=== PATIENT | female | born 1980 | race African-American/Black ===

== ENCOUNTER 2018-04-29 14:22 | Emergency (ER) | payer MEDICAID ==
[2018-04-29] MEDS ORDERED: NS 0.9% 1000 ML* 1,000 ML IV ONE (16:10)
[2018-04-29] MEDS ORDERED: Ondansetron INJ* 2 MG/ML VIAL IV ONE (16:12)
[2018-04-29 16:53] LABS: ABS Basophils 0.1 10^3/ul (0-0.2); ABS Eosinophils 0.4 10^3/ul (0-0.6); ABS Lymphocytes 3.5 10^3/ul (1.0-4.8); ABS Monocytes 0.5 10^3/ul (0-0.8); ABS Neutrophils 3.9 10^3/ul (1.5-7.7); ABS Nucleated RBC 0 10^3/ul; Eosinophil % 4.9 %; Hematocrit 37 % (35-47); Hemoglobin 12.2 g/dl (12.0-16.0); Lymphocyte % 41.8 %; Mean Corpuscular HGB Conc 33 g/dl (31-36); Mean Corpuscular Hemoglobin 28 pg (27-31); Mean Corpuscular Volume 85 fL (80-97); Mean Platelet Volume 9.2 fL (7.4-10.4); Nucleated Red Blood Cells % 0.1; Platelet Count 260 10^3/ul (150-450); Red Blood Count 4.31 10^6/ul (4.00-5.40); Red Cell Distribution Width 15 % (10.5-15); White Blood Count 8.4 10^3/ul (3.5-10.8)
--- NOTE | 2018-04-29 16:57 | ED ---
Back Pain - HPI Summary HPI Summary: Patient presents with central lower back pain and left flank pain associated with fever, nausea and abdominal bloating with left-sided abdominal discomfort. She reports urinary frequency however attributed this to being in cold weather she is from [place]. Denies dysuria, urgency, hematuria. She does report a history of chronic back pain but this feels different. She also admits she just started a new job yesterday with lifting/bending but symptoms started prior to that. She has "not been seen by anyone in a while" for her medical issues as she has not had insurance. Has not tried anything for pain prior to arrival. Reports at 7 out of 10 currently. Has had some spotting recently but denies full-blown period. Also admits to tubal ligation but is still sexually active. - History of Current Complaint Chief Complaint: EDBackInjuryPain Stated Complaint: LOWER BACK PAIN Time Seen by Provider: 04/29/18 14:56 Hx Obtained From: Patient Pain Intensity: 8 - Allergies/Home Medications Allergies/Adverse Reactions: Allergies Allergy/AdvReac Type Severity Reaction Status Date / Time Penicillins Allergy Unknown Verified 04/29/18 14:30 Reaction Details PMH/Surg Hx/FS Hx/Imm Hx Previously Healthy: Yes Endocrine/Hematology History: Denies: Hx Anticoagulant Therapy, Hx Blood Disorders, Autoimmune Disease - Surgical History Surgery Procedure, Year, and Place: tubal ligation Infectious Disease History: No Infectious Disease History: Denies: Traveled Outside the [place] in Last 30 Days - Social History Occupation: Employed Full-time Alcohol Use: Occasionally Hx Substance Use: No Substance Use Type: Reports: None Hx Tobacco Use: Yes Smoking Status (MU): Smoker, Current Status Unknown Review of Systems Positive: Fever, Fatigue Eyes: Negative ENT: Negative Cardiovascular: Negative Respiratory: Negative Positive: Abdominal Pain, Nausea. Negative: Vomiting, Diarrhea Positive: see HPI Positive: Arthralgia Skin: Negative Neurological: Negative Psychological: Normal All Other Systems Reviewed And Are Negative: Yes Physical Exam Triage Information Reviewed: Yes Vital Signs On Initial Exam: Initial Vitals Temp Pulse Resp BP Pulse Ox 97.8 F 71 20 146/96 98 04/29/18 14:24 04/29/18 14:24 04/29/18 14:24 04/29/18 14:24 04/29/18 14:24 Vital Signs Reviewed: Yes Appearance: Positive: Well-Appearing, Pain Distress - appears mildly fatigued Skin: Positive: Warm, Skin Color Reflects Adequate Perfusion, Dry Head/Face: Positive: Normal Head/Face Inspection Eyes: Positive: Normal, EOMI, Conjunctiva Clear - anicteric sclera ENT: Positive: Normal ENT inspection, Hearing grossly normal, Pharynx normal - mucosa moist Neck: Positive: Supple, Nontender, No Lymphadenopathy Respiratory/Lung Sounds: Positive: Breath Sounds Present. Negative: Rales, Rhonchi, Wheezes Cardiovascular: Positive: Normal, RRR, S1, S2. Negative: Murmur, Rub Abdomen Description: Positive: Soft, CVA Tenderness (L), Other: - Lt side ab TTP - no rebounding. Negative: Distended Bowel Sounds: Positive: Present Musculoskeletal: Positive: Strength/ROM Intact, Pain @ - central lower lumbosacral region TTP Neurological: Positive: Normal, Sensory/Motor Intact, Alert, Oriented to Person Place, Time, CN Intact II-III Psychiatric: Positive: Normal Diagnostics - Vital Signs Vital Signs Temp Pulse Resp BP Pulse Ox 04/29/18 14:24 97.8 F 71 20 146/96 98 - Laboratory Lab Results: Lab Results 04/29/18 Range/Units 16:44 WBC 8.4 (3.5-10.8) 10^3/ul RBC 4.31 (4.00-5.40) 10^6/ul Hgb 12.2 (12.0-16.0) g/dl Hct 37 (35-47) % MCV 85 (80-97) fL MCH 28 (27-31) pg MCHC 33 (31-36) g/dl RDW 15 (10.5-15) % Plt Count 260 (150-450) 10^3/ul MPV 9.2 (7.4-10.4) fL Neut % (Auto) 46.2 % Lymph % (Auto) 41.8 % Gilchrist % (Auto) 6.2 % Eos % (Auto) 4.9 % Baso % (Auto) 0.9 % Absolute Neuts (auto) 3.9 (1.5-7.7) 10^3/ul Absolute Lymphs (auto) 3.5 (1.0-4.8) 10^3/ul Absolute Monos (auto) 0.5 (0-0.8) 10^3/ul Absolute Eos (auto) 0.4 (0-0.6) 10^3/ul Absolute Basos (auto) 0.1 (0-0.2) 10^3/ul Absolute Nucleated RBC 0 10^3/ul Nucleated RBC % 0.1 Result Diagrams: 04/29/18 16:44 04/29/18 16:44 Lab Statement: Any lab studies that have been ordered have been reviewed, and results considered in the medical decision making process. Back Pain Course/Dx - Course Course Of Treatment: Signed out to Luis Caputo PA-C in stable condition pending U/A - Diagnoses Provider Diagnoses: Left flank pain, Left lateral abdominal pain Discharge - Sign-Out/Discharge Documenting (check all that apply): Patient Departure - Discharge Plan Condition: Good Disposition: HOME Prescriptions: Naproxen [Naproxen 500 mg tab] 500 mg PO BID #20 tablet. Sulfamethox/Trimethoprim DS* [Bactrim DS 800/160 TAB*] 1 tab PO BID #28 tab Patient Education Materials: Urinary Tract Infection in Women (ED) Forms: *Work Release Referrals: [facility] [Outside] Additional Instructions: Call the [facility] tomorrow to schedule an appointment Take medication as directed Increase fluids Return to ER if symptoms change or worsen - Billing Disposition and Condition Condition: GOOD Disposition: Home
[2018-04-29 17:02] LABS: Activated Partial Thrombo Time 31.3 seconds (26.0-36.3); INR 0.94 (0.77-1.02)
[2018-04-29 17:11] LABS: ALT 10 U/L (7-52); AST 14 U/L (13-39); Albumin 4.2 g/dL (3.2-5.2); Albumin/Globulin Ratio 1.3 (1-3); Alkaline Phosphatase 75 U/L (34-104); Anion Gap 5 mmol/L (2-11); BUN/Creatinine Ratio 14.7 (8-20); Blood Urea Nitrogen 10 mg/dL (6-24); CO2 Carbon Dioxide 29 mmol/L (22-32); Calcium 9.6 mg/dL (8.6-10.3); Chloride 103 mmol/L (101-111); EGFR African American 119.1 (>60); EGFR Non-African American 98.5 (>60); Globulin 3.3 g/dL (2-4); Glucose 115 mg/dL (70-100); Magnesium 1.8 mg/dL (1.9-2.7); Sodium 137 mmol/L (135-145); Total Protein 7.5 g/dL (6.4-8.9)
[2018-04-29 17:17] LABS: HCG Pregnancy < 0.60 mIU/mL
[2018-04-29] MEDS ORDERED: Ketorolac INJ* 30 MG/ML 1 ML VIAL IV PUSH ONE (18:17)
[2018-04-29 19:38] LABS: Urine Appearance Cloudy; Urine Bacteria 1+ (Absent); Urine Bilirubin Negative (Negative); Urine Blood Negative (Negative); Urine Color Yellow; Urine Glucose Negative (Negative); Urine Ketones Negative (Negative); Urine Nitrite Negative (Negative); Urine Protein Negative (Negative); Urine Red Blood Cell 3+(>10/hpf) (Absent); Urine Specific Gravity 1.018 (1.010-1.030); Urine Squamous Epithelial Cell Present (Absent); Urine Urobilinogen Negative (Negative); Urine White Blood Cell 3+(>20/hpf) (Absent)
--- NOTE | 2018-04-29 20:01 | PN ---
Progress Note - Progress Note Date of Service: 04/29/18 Note: Pt. received in sign out from Silke Peters PA-C pending u/a. U/A does show large RBCs and WBCs. Pt. was re-examined and noted left flank pain. She has no hx of kidney stones. Discussed possibility of urolithiasis based on u/a and flank pain. Pt. is agreeable to noncontrast CT scan for further evaluation. Abd./pelvis CT per virtual radiology is negative for acute findings per radiology. Will treat for suspected UTI given u/a, culture sent. Pt. started on bactrim and naproxen. To call the [facility] tomorrow for a close f.u apt. Will return to ER if sx change or worsen. Pt. understands and agrees with plan. Dx: UTI, back pain Disposition: home Condition: improved
[2018-04-29] MEDS ORDERED: Sulfamethox/Trimethoprim DS 800/160* TAB PO ONE (20:58)
[2018-04-29 21:29] VITALS: BP 120/74
== END 2018-04-29 21:28 | disposition home or self-care (01) ==
LOC: ED 14:22
DX: M54.5 Low back pain (principal); R10.32 Left lower quadrant pain; N39.0 Urinary tract infection, site not specified; Z88.0 Allergy status to penicillin
CPT/HCPCS: 36415; 74176; 80053; 81003; 81015; 83605; 83690; 83735; 84702; 85025; 85610; 85730; 86140; 87086; 96361; 96374; 96375; 99283; A9270-GY; J1885; J2405

== ENCOUNTER 2018-09-18 06:10 | Emergency (ER) | payer SELFPAY ==
--- NOTE | 2018-09-18 06:22 | ED ---
Lower Extremity - History of Current Complaint Chief Complaint: EDExtremityLower Stated Complaint: RT FOOT INJURY PER PT Time Seen by Provider: 09/18/18 06:19 Hx Obtained From: Patient Pain Intensity: 6 - Allergies/Home Medications Allergies/Adverse Reactions: Allergies Allergy/AdvReac Type Severity Reaction Status Date / Time Penicillins Allergy Unknown Verified 09/18/18 06:15 Reaction Details PMH/Surg Hx/FS Hx/Imm Hx Endocrine/Hematology History: Denies: Hx Anticoagulant Therapy, Hx Blood Disorders - Surgical History Surgery Procedure, Year, and Place: tubal ligation Infectious Disease History: No Infectious Disease History: Denies: Traveled Outside the [place] in Last 30 Days - Social History Alcohol Use: Occasionally Hx Substance Use: No Substance Use Type: Reports: None Hx Tobacco Use: Yes Smoking Status (MU): Smoker, Current Status Unknown Physical Exam Vital Signs On Initial Exam: Initial Vitals Temp Pulse Resp BP Pulse Ox 97.9 F 88 16 152/86 99 09/18/18 06:13 09/18/18 06:13 09/18/18 06:13 09/18/18 06:13 09/18/18 06:13 Diagnostics - Vital Signs Vital Signs Temp Pulse Resp BP Pulse Ox 09/18/18 06:13 97.9 F 88 16 152/86 99 - Laboratory Lab Statement: Any lab studies that have been ordered have been reviewed, and results considered in the medical decision making process. Discharge - Discharge Plan Referrals: Raeann Patel DO [Primary Care Provider] -
--- NOTE | 2018-09-18 06:33 | ED ---
Lower Extremity - HPI Summary HPI Summary: Pt is a 38 y/o otherwise healthy female with right midfoot pain, worse with eversion and walking, since 2030 last night. She states she slammed down her heel when she got out of the car and had immediate pain. She has not attempted to relieve her pain with OTC medications or ice. Denies bruising, redness, weakness. Notes intermittent tingling. Denies previous injury or surgeries on right foot. - History of Current Complaint Chief Complaint: EDExtremityLower Stated Complaint: RT FOOT INJURY PER PT Time Seen by Provider: 09/18/18 06:19 Hx Obtained From: Patient Onset of Pain: Hours Onset/Duration: Hours Severity Initially: Mild Severity Currently: Mild Pain Intensity: 4 Timing: Constant Location: Is Discrete @ - Dorsal midfoot, plantar arch. Character Of Pain: Aching Associated Signs And Symptoms: Negative: Swelling, Redness, Bruising, Fever Aggravating Factor(s): Standing, Ambulation Alleviating Factor(s): Nothing Able to Bear Weight: Yes - Allergies/Home Medications Allergies/Adverse Reactions: Allergies Allergy/AdvReac Type Severity Reaction Status Date / Time Penicillins Allergy Unknown Verified 09/18/18 06:15 Reaction Details Home Medications: Home Medications NK [No Home Medications Reported] 09/18/18 [History Confirmed 09/18/18] PMH/Surg Hx/FS Hx/Imm Hx Previously Healthy: Yes Endocrine/Hematology History: Denies: Hx Anticoagulant Therapy, Hx Blood Disorders - Surgical History Surgical History: Yes Surgery Procedure, Year, and Place: tubal ligation Infectious Disease History: No Infectious Disease History: Denies: Traveled Outside the [place] in Last 30 Days - Family History Known Family History: Positive: Non-Contributory - Social History Alcohol Use: Occasionally Hx Substance Use: No Substance Use Type: Reports: None Hx Tobacco Use: Yes Smoking Status (MU): Former Smoker Review of Systems Negative: Fever, Chills Negative: Chest Pain Negative: Shortness Of Breath Positive: Decreased ROM, Other - Right midfoot pain. Negative: Edema Negative: Rash, Bruising All Other Systems Reviewed And Are Negative: Yes Physical Exam Triage Information Reviewed: Yes Vital Signs On Initial Exam: Initial Vitals Temp Pulse Resp BP Pulse Ox 97.9 F 88 16 152/86 99 09/18/18 06:13 09/18/18 06:13 09/18/18 06:13 09/18/18 06:13 09/18/18 06:13 Vital Signs Reviewed: Yes Appearance: Positive: Well-Appearing, No Pain Distress Skin: Positive: Warm, Skin Color Reflects Adequate Perfusion, Dry Head/Face: Positive: Normal Head/Face Inspection Eyes: Positive: Normal ENT: Positive: Normal ENT inspection Respiratory/Lung Sounds: Positive: Clear to Auscultation, Breath Sounds Present. Negative: Rales, Rhonchi, Wheezes Cardiovascular: Positive: RRR. Negative: Murmur, Rub Musculoskeletal: Positive: Strength/ROM Intact - Limited right foot eversion d/ t pain. Pt notes limp with gait d/t pain., Pain @ - Dorsal right mid-foot, plantar arch of right foot., Other - No right foot or right ankle swelling. Sensation intact. Cap refill <2 seconds. Distal pulses 2+ and equal b/l. Neurological: Positive: Normal, Sensory/Motor Intact, Alert, Oriented to Person Place, Time Psychiatric: Positive: Normal Procedures - Splinting Right foot Splint: post-op shoe Pre-Proc Neuro Vasc Exam: normal Post-Proc Neuro Vasc Exam: normal, unchanged from pre-exam Diagnostics - Vital Signs Vital Signs Temp Pulse Resp BP Pulse Ox 09/18/18 06:13 97.9 F 88 16 152/86 99 - Laboratory Lab Statement: Any lab studies that have been ordered have been reviewed, and results considered in the medical decision making process. - Radiology Right foot x-ray Radiology Interpretation Completed By: ED Physician Summary of Radiographic Findings: negative for acute fractures Lower Extremity Course/Dx - Course Course Of Treatment: 38 y/o female with right mid-foot pain after injury. X-ray is negative for acute fractures. Pt provided post-op shoe in the ED, NV intact, and discharged to f/u with PCP. May take Tylenol and ibuprofen for pain control. Assessment/Plan: X-rays negative. No Lisfranc joint tenderness. Postop shoe placed. Patient seen in collaboration with the physician certified physical therapist assistant student. - Diagnoses Differential Diagnosis/HQI/PQRI: Positive: Contusion, Fracture (Closed), Sprain , Strain Provider Diagnoses: Contusion of right foot Discharge - Sign-Out/Discharge Documenting (check all that apply): Patient Departure Patient Received Moderate/Deep Sedation with Procedure: No - Discharge Plan Condition: Improved Disposition: HOME Patient Education Materials: Foot Contusion (ED) Referrals: Raeann Patel DO [Primary Care Provider] - Additional Instructions: Ibuprofen, elevate, Temo wrap for comfort. Ice sore area. Postop shoe for comfort. Follow up with your doctor in the next 5-7 days if still sore. Return if worse, new symptoms or other concerns. - Billing Disposition and Condition Condition: IMPROVED Disposition: Home - Attestation Statements Document Initiated by Davidibe: Yes Documenting Scribe: SANTOSH Urena Provider For Whom Robbin is Documenting (Include Credential): Dr. Desouza Scribe Attestation: Bryanna Guillen PA-S, scribed for Dr. Desouza on 09/18/18 at 0707. Scribe Documentation Reviewed: Yes Provider Attestation: The documentation as recorded by the robbin, SANTOSH Urena accurately reflects the service I personally performed and the decisions made by Dr. Lyly ramos Status of Scribe Document: Viewed
[2018-09-18 06:51] VITALS: BP 135/94
== END 2018-09-18 06:50 | disposition home or self-care (01) ==
LOC: ED 06:10
DX: S90.31XA Contusion of right foot, initial encounter (principal); X58.XXXA Exposure to other specified factors, initial encounter; Y92.9 Unspecified place or not applicable; Z88.0 Allergy status to penicillin; Z87.891 Personal history of nicotine dependence
CPT/HCPCS: 99282

== ENCOUNTER 2019-04-17 14:47 | Emergency (ER) | payer OTHER ==
[2019-04-17] MEDS ORDERED: Naproxen TAB* 250 MG PO ONE (15:35)
[2019-04-17 15:59] VITALS: BP 142/96
--- NOTE | 2019-04-17 17:15 | ED ---
Throat Pain/Nasal Congestion - HPI Summary HPI Summary: Patient is a 38-year-old female who presents emergency department for right ear pain and jaw pain times several days. Patient notes she has a history of TMJ and has numerous broken teeth. Patient denies fever, cough, vomiting.Again past medical history. Symptoms are mild in severity. Chewing and touching right side of face makes symptoms worse. Nothing makes symptoms better. - History of Current Complaint Chief Complaint: EDDentalPain Time Seen by Provider: 04/17/19 15:19 - Allergies/Home Medications Allergies/Adverse Reactions: Allergies Allergy/AdvReac Type Severity Reaction Status Date / Time Penicillins Allergy Unknown Verified 04/17/19 14:51 Reaction Details PMH/Surg Hx/FS Hx/Imm Hx Previously Healthy: Yes Endocrine/Hematology History: Denies: Hx Anticoagulant Therapy, Hx Blood Disorders - Surgical History Surgery Procedure, Year, and Place: tubal ligation Infectious Disease History: No Infectious Disease History: Denies: Traveled Outside the [place] in Last 30 Days - Family History Known Family History: Positive: Non-Contributory - Social History Alcohol Use: Rare Hx Substance Use: No Substance Use Type: Reports: None Hx Tobacco Use: Yes Smoking Status (MU): Current Some Day Smoker Review of Systems Constitutional: Negative Negative: Fever Eyes: Negative Positive: Ear Ache, Nasal Discharge Respiratory: Negative Negative: Cough Gastrointestinal: Negative Neurological: Negative All Other Systems Reviewed And Are Negative: Yes Physical Exam Triage Information Reviewed: Yes Vital Signs On Initial Exam: Initial Vitals Temp Pulse Resp BP Pulse Ox 97.7 F 66 14 151/85 99 04/17/19 14:49 04/17/19 14:49 04/17/19 14:49 04/17/19 14:49 04/17/19 14:49 Vital Signs Reviewed: Yes Appearance: Positive: Pain Distress - Pt. sitting on side of bed, tearful. Skin: Positive: Warm, Dry Head/Face: Positive: Normal Head/Face Inspection Eyes: Positive: Normal, EOMI, MARIA LUZ, Conjunctiva Clear ENT: Positive: Pharynx normal, Other - Right TM is erythematous and bulging.. Negative: Tonsillar swelling, Tonsillar exudate Dental: Positive: Other - Numerous dental fx and caries. No abscess not. No trismus or submandibular edema. Neck: Positive: Supple, Nontender, No Lymphadenopathy Respiratory/Lung Sounds: Positive: Clear to Auscultation, Breath Sounds Present Cardiovascular: Positive: Normal, RRR Neurological: Positive: Normal, CN Intact II-III Psychiatric: Positive: Affect/Mood Appropriate Procedures - Sedation Patient Received Moderate/Deep Sedation with Procedure: No Diagnostics - Vital Signs Vital Signs Temp Pulse Resp BP Pulse Ox 04/17/19 15:58 98.6 F 88 16 142/96 99 04/17/19 14:49 97.7 F 66 14 151/85 99 - Laboratory Lab Statement: Any lab studies that have been ordered have been reviewed, and results considered in the medical decision making process. EENT Course/Dx - Course Course Of Treatment: Patient's exam consistent with otitis media. Patient states she has anaphylactic reaction to penicillin. We'll treat with doxycycline. Naproxen prescribed for pain. Follow-up with PCP and return to the ER symptoms change or worsen. Patient understands and agrees with plan. - Differential Diagnoses Differential Diagnoses: Dental Abscess, Fractured Tooth, Otitis Externa, Otitis Media - Diagnoses Provider Diagnoses: Otitis media Discharge ED - Sign-Out/Discharge Documenting (check all that apply): Patient Departure - Discharge Plan Condition: Good Disposition: HOME Prescriptions: DOXYcycline CAP(*) [DOXYcycline 100MG CAP(*)] 100 mg PO BID #20 cap Naproxen [Naproxen 500 mg tab] 500 mg PO BID #20 tablet Patient Education Materials: Ear Infection (ED) Referrals: Raeann Patel DO [Primary Care Provider] - Additional Instructions: Follow up with PCP if symptoms persist Medication as directed Return to ER if symptoms change or worsen - Billing Disposition and Condition Condition: GOOD Disposition: Home
== END 2019-04-17 15:58 | disposition home or self-care (01) ==
LOC: ED 14:47
DX: H66.91 Otitis media, unspecified, right ear (principal); K03.81 Cracked tooth; K02.9 Dental caries, unspecified; Z88.0 Allergy status to penicillin; Z72.0 Tobacco use
CPT/HCPCS: 99282; A9270-GY

== ENCOUNTER 2019-05-17 10:45 | Emergency (ER) | payer OTHER ==
[2019-05-17] MEDS ORDERED: Ketorolac INJ* 30 MG/ML 1 ML VIAL IM ONE (11:50)
[2019-05-17] MEDS ORDERED: Lidocaine PATCH 5%* 1 PATCH TRANSDERM ONE (11:50)
[2019-05-17] MEDS ORDERED: Cyclobenzaprine TAB* 10 MG PO ONE (11:50)
--- NOTE | 2019-05-17 11:50 | ED ---
Lower Extremity - HPI Summary HPI Summary: Patient is a 38 y/o F presenting to [facility] with complaints of pain to right buttocks that radiates down her right leg. Sx have been present for the past 2.5 days. She states that she has a constant soreness to her right buttocks and notes intermittent spasms/pinching sensation to this area. Patient reports that she cannot stand up fully erect due to her Sx. Weight bearing worsens her Sx. Patient denies fever, incontinence and numbness between her vaginal and rectal areas. PMHx of vertebral fractures around seven years ago, patient did not undergo surgeries for these. Patient has been taking Tylenol for her pain. Penicillin allergy noted. Home medications and allergies are reviewed. - History of Current Complaint Chief Complaint: EDExtremityLower Stated Complaint: SCIATIC PAIN PER PT Time Seen by Provider: 05/17/19 11:37 Hx Obtained From: Patient Onset of Pain: Days, Prior to Arrival Onset/Duration: Still Present Severity Currently: Severe Pain Intensity: 8 Pain Scale Used: 0-10 Numeric Timing: Constant - soreness, Intermittent - spasms/pinching sensation Location: Is Discrete @ - right buttocks with radiation to RLE Character Of Pain: Stiffness Associated Signs And Symptoms: Positive: Other - NEGATIVE - incontinence and numbness between her vaginal and rectal areas. Negative: Fever - Allergies/Home Medications Allergies/Adverse Reactions: Allergies Allergy/AdvReac Type Severity Reaction Status Date / Time Penicillins Allergy Unknown Verified 04/17/19 14:51 Reaction Details PMH/Surg Hx/FS Hx/Imm Hx Endocrine/Hematology History: Denies: Hx Anticoagulant Therapy, Hx Blood Disorders Sensory History: Denies: Hx Legally Blind, Hx Deafness Opthamlomology History: Denies: Hx Legally Blind EENT History: Denies: Hx Deafness - Surgical History Surgery Procedure, Year, and Place: tubal ligation Infectious Disease History: No Infectious Disease History: Denies: Traveled Outside the [place] in Last 30 Days - Family History Known Family History: Negative: Diabetes - Social History Alcohol Use: Rare Hx Substance Use: No Substance Use Type: Reports: None Hx Tobacco Use: Yes Smoking Status (MU): Current Some Day Smoker Review of Systems Negative: Fever Negative: incontinence Positive: Myalgia - pain to right buttock with radiation down RLE Negative: Numbness All Other Systems Reviewed And Are Negative: Yes Physical Exam - Summary Physical Exam Summary: Constitutional: Well-developed, Well-nourished, Alert. (-) Distressed Skin: Warm, Dry HENT: Normocephalic; Atraumatic Eyes: Conjunctiva normal Neck: Musculoskeletal ROM normal neck. (-) JVD, (-) Stridor, (-) Tracheal deviation Cardio: Rhythm regular, rate normal, Heart sounds normal; Intact distal pulses; Radial pulses are 2+ and symmetric. (-) Murmur Pulmonary/Chest wall: Effort normal. (-) Respiratory distress, (-) Wheezes, (-) Rales Abd: Soft, (-) tenderness, (-) Distension, (-) Guarding, (-) Rebound Musculoskeletal: Tenderness to right buttocks, patient is able to stand but cannot do so erect. She can ambulate on both heels and toes. Lymph: (-) Cervical adenopathy Neuro: Alert, Oriented x3 Psych: Mood and affect Normal Triage Information Reviewed: Yes Vital Signs On Initial Exam: Initial Vitals Temp Pulse Resp BP Pulse Ox 98.5 F 76 18 143/84 97 05/17/19 10:51 05/17/19 10:51 05/17/19 10:51 05/17/19 10:51 05/17/19 10:51 Vital Signs Reviewed: Yes Procedures - Sedation Patient Received Moderate/Deep Sedation with Procedure: No Diagnostics - Vital Signs Vital Signs Temp Pulse Resp BP Pulse Ox 05/17/19 10:51 98.5 F 76 18 143/84 97 - Laboratory Lab Statement: Any lab studies that have been ordered have been reviewed, and results considered in the medical decision making process. Lower Extremity Course/Dx - Course Course Of Treatment: Patient is here with pain in her right buttock. Patient has no red flag symptoms of back pain or musculoskeletal pain. Patient is likely suffering from a muscle skeletal issue. Patient was given a dose of Toradol, Flexeril here. Patient was discharged with a prescription for Flexeril , lidocaine patches - Diagnoses Provider Diagnoses: Spasm of muscle of lower back Discharge ED - Sign-Out/Discharge Documenting (check all that apply): Patient Departure - discharge - Discharge Plan Condition: Stable Disposition: HOME Prescriptions: Cyclobenzaprine TAB* [Flexeril 10 MG TAB*] 10 mg PO BID PRN #12 tab PRN Reason: muscle spasm Lidocaine PATCH 5%* [Lidoderm 5% Patch*] 1 patch TRANSDERM DAILY #7 patch Patient Education Materials: Low Back Strain (ED) Forms: *Work Release Referrals: Raeann Patel DO [Primary Care Provider] - 3 Days Additional Instructions: Please follow up with your primary care physician within three days. Apply heat to the affected area. Take your medicines as prescribed and 600 mg ibuprofen every six hours. Return to ED if you have issues going to the bathroom, if you have numbness between your vaginal and rectal areas, or if you have any other concerning or worsening symptoms. - Billing Disposition and Condition Condition: STABLE Disposition: Home - Attestation Statements Document Initiated by Gilberto: Yes Documenting Scribe: RIKKI ORLANDO Provider For Whom Gilberto is Documenting (Include Credential): BREEZY VÁZQUEZ MD Scribe Attestation: RIKKI Guillen, scribed for BREEZY VÁZQUEZ MD on 05/17/19 at 2137. Scribe Documentation Reviewed: Yes Provider Attestation: The documentation as recorded by the RIKKI siegel accurately reflects the service I personally performed and the decisions made by , BREEZY VÁZQUEZ MD Status of Scribjessica Document: Viewed
[2019-05-17 12:35] VITALS: BP 132/84
[2019-05-17] MEDS ORDERED: Lidocaine Patch REMOVE* 1 NOTE MISC SCH (21:00)
== END 2019-05-17 12:34 | disposition home or self-care (01) ==
LOC: ED 10:45
DX: M62.830 Muscle spasm of back (principal); F17.200 Nicotine dependence, unspecified, uncomplicated; Z88.0 Allergy status to penicillin
CPT/HCPCS: 96372; 99282; A9270-GY; J1885